=== PATIENT | male | born 1960 | race American Indian/Alaskan Native ===

== ENCOUNTER 2016-03-15 08:51 | Outpatient (CLI) | payer MEDICAID ==
[2016-03-15] MEDS ORDERED: Albuterol 0.083% 2.5 MG/3 ML Neb Soln NEB ONE (09:13)
== END 2016-03-15 09:35 | disposition home or self-care (01) ==
LOC: VM.RT 08:51
PROVIDERS: ATTEND Physician Assistant
DX: R06.02 Shortness of breath (principal)
CPT/HCPCS: 94060; J7620